=== PATIENT | male | born 1955 | race Caucasian/White ===

== ENCOUNTER 2021-03-09 14:01 | Emergency (ER) | payer MEDICAID ==
[~2021-03-09] VITALS: Ht 167.6 cm; Wt 58.1 kg
[2021-03-09 14:04] VITALS: BP 102/57
[2021-03-09] MEDS ORDERED: KETOROLAC 60 MG/2 ML VIAL IM ONE (14:15)
--- NOTE | 2021-03-09 14:18 | NUR ---
DR MALDONADO AT BEDSIDE EVALUATING PT
[2021-03-09] MEDS ORDERED: IBUP-2213 PO (14:35)
[2021-03-09 14:43] VITALS: BP 102/57
--- NOTE | 2021-03-09 14:43 | NUR ---
NO NURSING INTERVENTIONS IMPLEMENTED
== END 2021-03-09 14:43 | disposition home or self-care (01) ==
LOC: MED 14:01
DX: M25.561 Pain in right knee (principal); M25.562 Pain in left knee; F17.210 Nicotine dependence, cigarettes, uncomplicated
CPT/HCPCS: 99282; J1885